=== PATIENT | male | born 1995 | race Caucasian/White ===

== ENCOUNTER 2019-10-13 04:18 | Emergency (ER) | payer SELFPAY ==
[~2019-10-13] VITALS: Ht 177.8 cm; Wt 59.0 kg
[2019-10-13] MEDS ORDERED: LORAZEPAM 2MG/ML CPJ IV ONE (05:30)
[2019-10-13] MEDS ORDERED: MORPHINE SULFATE 4 MG/ML CPJ (NOT FOR IM USE) IV STA (06:07)
[2019-10-13] MEDS ORDERED: ONDANSETRON HCL 4MG/2ML INJ IV STA (06:07)
[2019-10-13] MEDS ORDERED: PROPOFOL 200MG/20ML VIAL IV ONE (06:15)
[2019-10-13 09:30] VITALS: BP 100/65
== END 2019-10-13 10:25 | disposition home or self-care (01) ==
LOC: ER 04:18
DX: S03.03XA Dislocation of jaw, bilateral, initial encounter (principal); I49.9 Cardiac arrhythmia, unspecified; X58.XXXA Exposure to other specified factors, initial encounter; Y93.89 Activity, other specified; Y92.89 Other specified places as the place of occurrence of the external cause; Y99.8 Other external cause status
CPT/HCPCS: 21480; 70110; 93005; 96374; 96375; 99284; J2060; J2270; J2405